=== PATIENT | male | born 1965 | race Caucasian/White ===

== ENCOUNTER 2020-09-23 14:26 | Emergency (ER) | payer BC, SELFPAY ==
[2020-09-23 14:30] VITALS: BP 165/105; PULSE 94; RESP 20; TEMP 36.8; O2SAT 98; BMI 26.8
--- NOTE | 2020-09-23 14:38 | RAD_ITS ---
STUDY: X-RAY - RIGHT HAND, ATTENTION SECOND FINGER REASON FOR EXAM: Male, 54 years old. Crush in wood splitter TECHNIQUE: 3 view(s) of the finger were obtained. COMPARISON: None. FINDINGS: Normal metacarpal head. Normal metacarpophalangeal joint. Normal proximal phalanx. Normal middle phalanx. Normal distal phalanx. Normal proximal interphalangeal joint. Normal distal interphalangeal joint. There is soft tissue injury involving the distal finger extending to the cortical surface of the distal phalanx. RAD/Finger(s) Min 2 Views IMPRESSION: 1. No fracture or malalignment. 2. Soft tissue injury of the distal second finger extending to the distal phalanx cortical surface. Electronically Signed: Sebas Blanco MD (Brooks) at 15:07 EDT , Service support ,
--- NOTE | 2020-09-23 14:39 | EKG12_ITS ---
Test Reason : TACHY Blood Pressure : / mmHG Vent. Rate : 093 BPM Atrial Rate : 093 BPM P-R Int : 150 ms QRS Dur : 090 ms QT Int : 364 ms P-R-T Axes : 064 018 040 degrees QTc Int : 452 ms Normal sinus rhythm with sinus arrhythmia Normal ECG Confirmed by BASIM GEIGER, SHABANA ([id number]), food expeditor MARISOL RODRIGUEZ ([id number]) on 09/27/2020 7:46:15 AM Referred By: JESSICA/CHIQUI Confirmed By:SHABANA STALLWORTH MD
--- NOTE | 2020-09-23 14:51 | ED.DCSUM_ITS ---
History of Present Illness Chief Complaint: Upper Extremity Injury Informant: Patient Narrative: Patient is a 54-year-old male with history of neurofibromatosis who presents to the emergency department for right index finger injury. He states he got his finger caught in a wood splitter. Mild bleeding present onto arrival in the emergency department. He denies any other injury. There is a large chunk of skin from the pad of the distal finger missing. He is not on any blood thinning medications. He denies any loss of sensation on the rest of the finger. He is able to move the finger well. He is right-handed at baseline. Patient not sure when last tetanus shot was, it has been greater than 5 years. Past Medical History - Allergies and Home Meds Allergies/Adverse Reactions: Allergies No Known Allergies Allergy (Verified 09/23/20 14:35) Primary Care Physician: [facility] [Outside] - 1 Day [facility] Doctor,Out of [NON-STAFF] - Prior records reviewed: Yes Past Medical History: None Surgical History: noncontributory Smoking Status: Unknown if ever smoked Review of Systems All systems negative except as indicated General: Denies: Chills, Fever, Sweats Eyes: Denies: Visual changes - bilaterally, Diplopia ENT: Denies: Rhinorrhea, Sore throat Cardiovascular: Denies: Chest pain, Palpitations Respiratory: Denies: Dyspnea, Cough, Dyspnea on exertion Gastrointestinal: Denies: Abdominal pain, Nausea, Vomiting Musculoskeletal: Reports: Extremity Pain. Denies: Neck pain, Back pain Skin: Reports: Wounds. Denies: Rash Neurological: Denies: Headache, Weakness, Numbness Hematologic: Denies: Easy bruising, Easy bleeding Physical Exam Vital Signs/Narrative: Vital Signs Temp Pulse Resp BP Pulse Ox 09/23/20 14:30 98.2 F 94 20 H 165/105 H 98 Inital Vital Signs reviewed: Yes General: Well nourished, Well developed, No Acute Distress Head: Normocephalic, Atraumatic Eyes: Perrl, EOMI ENT: Moist mucous membranes, No rhinorrhea Neck: Supple Cardiovascular: Regular rate, Regular rhythm Respiratory: No distress, CTA bilaterally Abdomen: Nontender, Nondistended Back: Nontender, Normal Inspection Extremities: Nontender - The pad of the right index finger has large avulsion with bone exposed. Fingernail is missing with half of the nailbed gone. Exposed muscle/fat pad. Length of avulsion is approximately 3.5 cm, sensation intact on dorsal aspect. Good range of motion of the finger with extension and flexion., No edema, - - The pad of the right index finger has large avulsion with bone exposed. Fingernail is missing with half of the nailbed gone. Exposed muscle/fat pad. Length of avulsion stent approximately 3.5 cm sensation intact on dorsal aspect. Good range of motion of the finger with extension and flexion. Skin: Normal color, No rash Neurological: Alert, Oriented x3, Normal Strength, Normal Sensation Psychological: Normal affect, Normal Mood Diagnostic/Tx/Re-eval Chest X-Ray - ED: - - 2 view finger x-ray interpreted by myself. No bony fracture appreciated. There is soft tissue injury of the distal phalanx. - Medical Decision Making Patient presents to the emergency department for finger injury. He got his index finger stuck in a wood splitter. X-rays are being obtained. This will require repair with sutures. The wound is soaked in warm water with chlorhexidine. Digital block was performed with lidocaine. Apparently out in triage patient's rhythm strip was double reading and was thought to be 180 bpm so an EKG was obtained prior to going to room. It was actually 93 bpm. EKG just showed a normal sinus rhythm. No ST elevations or depressions. No T wave abnormalities. Wound was repaired as best as possible. The bone was trimmed down in order to bring the soft tissue over it. I was unable to completely close the skin as with the large avulsion there was not enough to bring it together. Patient's finger was dressed. He was given first dose of antibiotic here in the emergency department as well as tetanus update. He will be sent home on antibiotic. He understands he is to call the [facility] Friday morning to get an appointment as soon as possible. This will likely need revision. Return precautions are reviewed with him including any increased bleeding, signs of infection. He understands and is agreeable this plan. Discharged home in stable condition. All questions answered. Procedures Procedure(s): Finger avulsion repair: Consent obtained. Patient had finger soaking in warm chlorhexidine water. It was rinsed out with normal saline. 6cc 1% lidocaine without epi used for digital block. The distal phalanx was rongeured in order to be covered up with the soft tissue surrounding the site. Patient did have some pulsatile bleeding and vessel was tied off at distal site. Four absorbable 5-0Vicryl sutures were placed to bring the fat pad and finger muscle closer together. 4 overlying 4-0 ethilon nonabsorbale were then placed to bring the skin closer together. Unable to bring this closely approximated. There was still a venous ooze and Surgicel was applied. A pressure dressing was then applied. Patient observed afterward. No complications. He tolerated this procedure well. ED Disposition - Plan for ED Patient: Disposition: Home or Assisted Living Diagnosis: Finger avulsion Instructions: ED Skin Avulsion Prescriptions: Cephalexin [Keflex] 500 mg PO Q6 7 Days #28 capsule Prescription Printed Referrals: [facility] Doctor,Out of [NON-STAFF] - [facility] [Outside] - 1 Day Additional Instructions: Please schedule appointment with the [facility] hand surgeon as soon as possible. Wound needs to be monitored. Sutures will also need to be removed in 7 to 10 days. Please stay on antibiotic until evaluated by the surgeon.
[2020-09-23] MEDS: Lidocaine 1% (20 ml mdv) 20 ML Vial 5 ML INFILT (15:14)
[2020-09-23] MEDS: Cephalexin 250 MG Capsule 500 MG PO (16:52)
[2020-09-23] MEDS: Diphth,Pertuss(Acell),Tet Vac 0.5 ML Vial IM (16:53)
== END 2020-09-23 17:03 | disposition home or self-care (01) ==
PROVIDERS: Emergency Provider Emergency Medicine; PCP Nurse Practitioner Family
DX: S61.300A Unspecified open wound of right index finger with damage to nail, initial encounter (principal); W31.89XA Contact with other specified machinery, initial encounter; Y93.89 Activity, other specified; Y92.89 Other specified places as the place of occurrence of the external cause; Y99.8 Other external cause status; Q85.00 Neurofibromatosis, unspecified; Z23 Encounter for immunization
CPT/HCPCS: 11730; 73140; 90715; 93005; 99281; 99283

== ENCOUNTER 2021-07-30 07:33 | Outpatient (CLI) | payer BC, SELFPAY ==
--- NOTE | 2021-07-30 07:40 | CT_ITS ---
STUDY: CT RIGHT SHOULDER REASON FOR EXAM: Male, 55 years old. Preoperative evaluation. RADIATION DOSAGE (If Supplied By Facility): CTDIvol = ( 28.23 ) mGy, DLP = ( 590.11 ) mGycm TECHNIQUE: The patient was scanned in a multi detector CT scanner. High resolution transaxial imaging was performed without the administration of intravenous contrast material. Sagittal and coronal images were reconstructed. Individualized dose optimization techniques were used for this CT. COMPARISON: None. FINDINGS: The patient is status post right shoulder replacement. There is good alignment. Normal coracoid process. Normal visualized lateral clavicle. Normal acromioclavicular articulation. There is a Type II morphology (curved), with a neutral orientation. Normal visualized muscles and soft tissue structures. CT/Extremity Upper without Contra IMPRESSION: The patient is status post right shoulder replacement. There is good alignment. Electronically Signed: David Cheek MD at 9:54 EST ,
== END 2021-07-30 23:59 | disposition home or self-care (01) ==
PROVIDERS: PCP Nurse Practitioner Family; Referring Provider Specialist; Visit Provider Specialist
DX: Z96.611 Presence of right artificial shoulder joint (principal)
CPT/HCPCS: 73200; C9803

== ENCOUNTER 2021-09-19 13:00 | Inpatient (IN) | payer BC, SELFPAY ==
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
--- NOTE | 2021-09-06 08:01 | EKG12_ITS ---
Test Reason : PREOP Blood Pressure : / mmHG Vent. Rate : 060 BPM Atrial Rate : 060 BPM P-R Int : 150 ms QRS Dur : 084 ms QT Int : 418 ms P-R-T Axes : 053 012 031 degrees QTc Int : 418 ms Normal sinus rhythm Normal ECG Confirmed by YENNY GEIGER, KAYR ([id number]), editor magazine BESS JOYNER ([id number]) on 09/06/2021 1:34:21 PM Referred By: JACKY PABLO Confirmed By:BENJI RAMON MD
[2021-09-06 08:06] LABS: Absolute Lymphocyte Count 1.71 X10^3/uL (0.83-4.51); Absolute Neutrophil Count 5.1 X10^3/uL (2.0-7.7); Basophil# 0.05 X10^3/uL; Basophil% 0.6 % (0-1); Eosinophils% 4.9 % (0-5); Hematocrit 46.4 % (40-54); Hemoglobin 16.4 g/dL (13.0-16.5); Lymphocyte # 1.71 X10^3/ul (0.83-4.51); Lymphocyte % 20.8 % (19-41); Mean Corp Hgb Conc 35.3 g/dL (32-36); Mean Corpuscular Hgb 31.4 pg (27.0-32.0); Mean Corpuscular Volume 88.7 fL (80-94); Mean Platelet Vol. 9.7 fl (6.2-12.0); Monocyte# 0.93 X10^3/uL; Monocyte% 11.3 % (0-10); NRBC Flagged by Analyzer 0 % (0-5); Neutrophil # 5.08 X10^3/uL (2.7-7.7); Neutrophil % 61.9 % (47-70); Platelet Count 254 K/mm3 (150-450); RBC Distribution Width CV 12.7 % (11.6-14.6); RBC Distribution Width SD 41.5 fl (35.1-43.9); Red Blood Count 5.23 M/mm3 (4.6-6.2); White Blood Count 8.2 K/mm3 (4.4-11.0)
[2021-09-06 08:36] LABS: Magnesium 2.2 mg/dL (1.6-2.6)
[2021-09-06 08:40] LABS: Albumin, Serum 3.7 g/dL (3.2-5.0); Anion Gap 3 (5-15); BUN 15 mg/dL (7-18); BUN/Creat Ratio 18.5 RATIO (10-20); Calcium,Total 9.2 mg/dL (8.5-10.1); Chloride 106 mmol/L (98-107); Creatinine, Serum 0.81 mg/dL (0.70-1.30); EST Glomerular Filtration Rate 104 mL/min (>60); Est Glom Filt Rate - Afr Amer 126 mL/min (>60); Glucose 108 mg/dL (74-106); Potassium 4.1 mmol/L (3.5-5.1); Sodium Level 138 mmol/L (136-145)
[2021-09-19] VITALS (10 sets, daily range): BP systolic 124–151; BP diastolic 76–98; PULSE 68–93; RESP 16–18; TEMP 36.4–37.1; O2SAT 93–100; BMI 28.2
[2021-09-19] MEDS: Gabapentin 600 MG Tablet PO (08:20)
[2021-09-19] MEDS: Celecoxib 200 MG Capsule 400 MG PO (08:20)
[2021-09-19] MEDS: Acetaminophen 500 MG Tablet 1000 MG PO ×3 (08:21→21:59)
[2021-09-19] MEDS: dexAMETHasone 10 MG/ML Vial IV (08:21)
[2021-09-19] MEDS: Lactated Ringers 1,000 ML 999 ML IV ×2 (08:21→14:25)
[2021-09-19] MEDS: Lactated Ringers 1,000 ML 75 ML IV ×2 (08:38→16:11)
[2021-09-19 09:50] LABS: Bedside Glucose 112 mg/dL (74-106)
[2021-09-19] MEDS: Cefazolin 2 GM in 0.9% Normal Saline 100 ML IV (10:21)
[2021-09-19] MEDS: TXA 1000mg in NS100 100ml (IVPB at Incision) 660 MG IV (10:31)
[2021-09-19] MEDS: TXA 1000mg in NS100 100ml (IVPB at Closure) 660 MG IV (12:53)
--- NOTE | 2021-09-19 13:01 | RAD_ITS ---
STUDY: X-RAY - RIGHT SHOULDER REASON FOR EXAM: Postoperative evaluation of right shoulder arthroplasty. TECHNIQUE: 2 view(s) of the shoulder. COMPARISON: CT right shoulder report 07/30/2021. FINDINGS: There is a reverse right shoulder arthroplasty without evidence of complication. There is postoperative gas in the soft tissues. Normal visualized pulmonary apex. RAD/Shoulder min 2 Views IMPRESSION: Uncomplicated right shoulder arthroplasty. Electronically Signed: Jae Womack MD at 14:47 EDT ,
--- NOTE | 2021-09-19 13:05 | OP.PCM_ITS ---
Report of Operation Date of Procedure: 09/19/21 Pre-Operative Diagnosis: Right shoulder Previous hemiarthroplasty with progress ion of osteoarthritis of the glenoid side. Post-Operative Diagnosis: Right shoulder Previous hemiarthroplasty with progression of osteoarthritis of the glenoid side. Surgery/Procedure Performed:: Right revision hemiarthroplasty to reverse total shoulder replacement Description of Surgical Findings:: Stable shoulder Surgeon: Emir Laguerre certified wellness program manager: Perfecto Trent Type of Anesthesia: General Special Medications: 2 g Ancef, 1 g TXA at incision, 1 g TXA closure, 10 mg Decadron. Vancomycin and incision. Patient was redosed with an additional gram of Ancef 2 hours after incision was made. Specimen's removed: Bony cuts Estimated Blood Loss (mL): 100 Fluids Replaced: 1200 ML CRYSTALLOID Description of Procedure: Components used 1. Biomet 28 mm baseplate with 2 screws 2. Biomet 36 mm +6 mm cobalt-chromium glenosphere with the offset 3. Tornier 36mm, 6mm humeral liner 4. Tornier reverse TSA humeral adapter tray 36 mm With a 3.5 mm offset 5. Tornier revision modular humeral stem 11 mm distal stem with 11 mm standard body. Brief history/Operative indications: 55 yo M with history of previous right shoulder hemiarthroplasty in 2011. Patient had progression of pain and superior migration of the humeral head as well as progression of glenoid osteoarthritis.. Patient failed conservative measures as mentioned in the H&P. After discussion of risk and benefits of reverse total shoulder replacement including but not limited to blood loss, DVTs, PEs, nerve vessel damage, infection, general risk of anesthesia including loss of life, instability and stiffness patient demonstrating understanding wish to proceed was able to sign informed consent. Medical clearance was obtained. In the office and in the preoperative area we discussed our plan was to attempt to use the same fisher eel as the stem and convert to have a reverse shoulder replacement while saving the humeral stem. However I discussed the patient that there is a modular stem made by different company we would use this if we had to revise the stem. Based on this decision being made after bony glenoid work we discussed the potential for off label use of 2 different implant companies. Patient understands we will use a matching diameter. Patient is agreeable to the treatment plan. Procedure: On the date of the procedure, patient's right upper extremity was marked in the preoperative area. Patient was taken back to the operating room where they were placed on the table in the supine position. Anesthesia assumed control of the C-spine and airway, then administered anesthetic. All bony prominences were identified well-padded, the head was secured and the patient was placed in the beachchair position at about 35? inclination. Anesthesia remained in control of the C-spine airway throughout the remainder of the procedure. Patient was then appropriately fastened to the table and the right upper extremity was prepped in a sterile fashion. The surgeons then scrubbed. Upon reentering the room, the right upper extremity was draped in a sterile fashion and the incision was marked out. Timeout was called, everyone agreed upon the side, the site, the procedure to be performed, patient identity and antibiotics given. Incision was taken down through skin and subcutaneous tissue, fat down to fascia. We carefully dissected down. Patient had had previous multiple surgeries and we used anatomic markers including the coracoid process in order to identify the interval. We carefully dissected between the interval and identify the implant. Once we identified the proximal humerus we carefully dissected down the humeral shaft and over the medial humerus protecting vital structures. Once this was done we were able to use a instrument to disrupt the Pierson taper and remove the humeral head. 2 separate cultures were taken from this area. Once his humeral head was removed the humerus was retracted out of the way and the glenoid was exposed. After exposing the glenoid, the labrum and the remaining proximal biceps were debrided. At this time we are able to view the entire outer edge of the glenoid. A central pin was placed we sequentially reamed over this central pin to 28mm. For the Biomet 28 mm baseplate. We then carefully removed excess bone around the glenoid. Once this was completed the central screw was measured and found to be. The glenoid baseplate was screwed into place. Wound was closely irrigated out with normal saline we then drilled sequentially for 2 screws. Screws were placed superiorly and inferiorly and tightened down the screws. Once the screws were appropriately tightened into place the glenoid baseplate was compressed against the exposed subchondral bone. At this time we placed a trial glenosphere. Once the trial glenosphere was placed we turned our attention back to the humerus where we trialed to attempt to see if we could a ppropriately tension the soft tissues. Unfortunately however using both a 36 and a 40 mm glenosphere we were unable to adequately tension the tissues as they were increasingly tight. There was too much anteriorization of the current humeral position. At this point trials were removed on we directed our attention towards the humerus. The humerus was again externally rotated exposing the proximal portion of the humerus. Flexible osteotomes and a bur were used to carefully debride bone around the proximal humerus. A extraction mechanism was placed on the proximal humerus stem and it was removed. There was a anterior bony defect. Central canal finder was then used to open up the canal. We sounded the canal to an 11 mm stem with a standard body. The trial stem was assembled on the back table and inserted into place at 30 degrees retroversion. We trialed the 6mm liner, with the 36 mm +3.5 mm humeral baseplate. We obtained an adequate reduction at this time with a nice stable shoulder. In attempting to take the shoulder through range of motion we did note that there was a fracture in the anterior bone which was then. However the main greater tuberosity and the soft tissue at tachments remained stable. Based on this we did not elect to proceed with any further intervention as there was no way to really fix this for bone stock. Good internal rotation to the gluteus, forward elevation to 120?, external rotation to 20?. Final components were then assembled on the back table, trials were removed and the wound was copiously irrigated with normal saline after dislocating the shoulder. Once the final components were assembled they were impacted into place. Shoulder was then reduced and found to be stable with good range of motion. Subscapularis tendon not repairable. The wound was with chlorhexidine solution then copiously irrigated out with a 1 L normal saline lavage. The deltopectoral fascia was then closed using #1 Vicryl skin was closed using 2-0 Vicryl interrupted sutures and final skin closure was done with 3-0 Monocryl. Steri-Strips are placed for final skin closure. Sterile dressing was placed patient was then placed in a sling and awakened by anesthesia. Patient was then transferred to the PACU for recovery. Postoperative plan: Patient will be admitted to the hospital overnight. They will get physical therapy starting in 2 weeks with normal postoperative regimen. Patient will be placed on 81 mg twice daily aspirin for DVT prophylaxis. The first postoperative appointment will be in 2 weeks for wound check and initiation of phase 1 physical therapy. Patient was placed on doxycycline 100 mg twice daily for 2 weeks as we follow cultures. During the course of the procedure the physician assistant prosecuting attorney played a vital role. His intimate knowledge of my steps in the procedure aided in safe and expedient completion of the procedure. The PA played a vital rolls in positioning particularly in obtaining the appropriate beach chair position and securing the patient's body and head to the table. The PA was also vital in the retraction of soft tissues during the exposure and especially the glenoid work as this is a vital part of the procedure to prevent neurovascular damage. the PA was also vital and protecting soft tissues during times of bony cuts and reaming. He also played a vital role in closure with my direct supervision. The PA was also important during reduction and dislocation of the joint and trials intraoperatively. Complications Nondisplaced fracture at the area of the anterior greater tuberosity. Admit VTE Documentation VTE Present on Admission: No VTE Mechan Device Prophylaxis: SCD's VTE Pharm Prophylaxis ordered?: Yes
[2021-09-19] MEDS: oxyCODONE 5 MG Tablet PO ×2 (16:11→20:21)
--- NOTE | 2021-09-19 16:55 | PN.HOSP_ITS ---
Documented by User: Karyn Roman NP, MARINE EQUIPMENT TEST ENGINEER-C 09/19/21 18:06 Subjective Subjective Patient seen and examined. Pain fairly controlled. Denies current symptoms or complaints. States he was just recently put on blood pressure medicine and he feels his pressure was elevated secondary to pain. Objective Data Objective Data Vital Signs: Vital Signs Temp Pulse Resp BP Pulse Ox 98.6 F 73 18 133/83 H 95 09/19/21 15:34 09/19/21 15:34 09/19/21 15:34 09/19/21 15:34 09/19/21 15:45 Oxygen Flow Rate (L/min) 4 Oxygen Delivery Method Nasal Cannula Weight: 213 lb 13.574 oz Body Mass Index (BMI) 28.2 Intake & Output: Intake and Output for Last 24 Hours 09/17/21 09/18/21 09/19/21 23:59 23:59 23:59 Intake Total 4366 / 4366 Output Total 450 / 450 Balance 3916 / 3916 Lab / Micro Data Result Diagrams: 09/06/21 07:53 09/06/21 07:53 Labs: Laboratory Results - last 24 hr 09/19/21 08:17: POC Glucose 112 H Micro: Microbiology 09/18/21 10:00 Nasal Secretion SARS-CoV-2 Antigen (Rapid) - Final 09/06/21 07:53 Interface Orders Nasal Screen MRSA/MSSA - Final Radiography Diagnostic Testing: Radiology Impression Shoulder X-Ray 09/19/21 13:01 IMPRESSION: Uncomplicated right shoulder arthroplasty. Electronically Signed: Jae Womack MD at 14:47 EDT , Physical Exam Const alert, oriented x3 and no apparent distress Orientation / Consciousness: awake, oriented to person, oriented to place and oriented to time HEENT normocephalic and moist oral mucous membranes Eyes PERRL, EOMs intact bilaterally and conjunctivae normal Neck no lymphadenopathy Resp normal respiratory effort and clear to auscultation bilaterally Cardio regular rate, regular rhythm and no murmurs Peripheral Pulses: pulses 2+ throughout GI normal to inspection, nondistended, normoactive bowel sounds, non-tender and non-distended Extremity normal to inspection Skin no rashes or lesions noted Skin Narrative: Diffuse dermatofibromatosis Lesions: no lesions Rashes: no rashes Trauma: no lacerations or abrasions Neuro CN's II-XII intact bilaterally, no focal motor deficits, no sensory deficits noted and deep tendon reflexes 2+ bilaterally Psych mental status grossly normal and affect normal Assessment & Plan Assessment/Plan (1) Osteoarthritis, shoulder: PLAN: 1. Right shoulder previous hemiarthroplasty with progression of ost eoarthritis of the glenoid side status post right revision hemiarthroplasty to reverse total shoulder replacement-management per orthopedic medicine. PT/OT. As needed pain regimen. 2. Hypertension-continue lisinopril. 3. Hyperlipidemia-not on statin. 4. Diffuse dermatofibromatosis DVT prophylaxis-aspirin 81 mg twice daily per Ortho This patient was seen by BALTAZAR Jones under the supervision of Dr. Farnsworth. Time spent examining patient, reviewing data and subsequent management of care: 10 Minutes Documented by User: Dr. Jeff Farnsworth MD 09/19/21 18:22 Objective Data Lab / Micro Data Result Diagrams: 09/06/21 07:53 09/06/21 07:53 Charges/Coding Addendum Addendum: Dr. Farnsworth: I personally reviewed the chart and examined the patient, and agree with the above findings. 55-year-old male with a history of neurofibromatosis and hypertension presents to the hospital for an elective revision of his right shoulder. Denies any change in his medical history recently and is only on lisinopril. We will check a creatinine in the morning to monitor stability. He states that he elected to stay overnight in the hospital secondary to living alone and he did not want to spend the night on his own immediately after surgery. Medicine was consulted for medical management. Nothing to do for his neurofibromatosis, will recommend continuing light) and monitoring creatinine in the morning. Clinical time spent in all aspects of patient care: 15 minutes Visit Charges Inpatient E&M: 17721 Subs Hosp L2
[2021-09-19] MEDS: Cefazolin 1 GM/50 ML BAG IV (17:37)
[2021-09-19] MEDS: Ensure Surgery 237 ML LIQUID PO (17:42)
[2021-09-19] MEDS: Senna/Docusate Sodium 1 Tablet 2 TABLET PO (21:59)
[2021-09-20 00:41] VITALS: BP 144/105; PULSE 91; RESP 18; TEMP 36.5; O2SAT 96
[2021-09-20] MEDS: Cefazolin 1 GM/50 ML BAG IV (02:50)
[2021-09-20 05:05] VITALS: BP 148/99; PULSE 77; RESP 18; TEMP 36.7; O2SAT 96
[2021-09-20] MEDS: Acetaminophen 500 MG Tablet 1000 MG PO (05:07)
[2021-09-20 06:06] LABS: Hematocrit 41.9 % (40-54); Hemoglobin 14.9 g/dL (13.0-16.5); Mean Corp Hgb Conc 35.6 g/dL (32-36); Mean Corpuscular Hgb 31.2 pg (27.0-32.0); Mean Corpuscular Volume 87.8 fL (80-94); Mean Platelet Vol. 10.9 fl (6.2-12.0); Platelet Count 229 K/mm3 (150-450); RBC Distribution Width CV 12.5 % (11.6-14.6); RBC Distribution Width SD 40.4 fl (35.1-43.9); Red Blood Count 4.77 M/mm3 (4.6-6.2); White Blood Count 17.1 K/mm3 (4.4-11.0)
[2021-09-20 06:29] LABS: Anion Gap 7 (5-15); BUN 13 mg/dL (7-18); BUN/Creat Ratio 16.7 RATIO (10-20); Calcium,Total 8.6 mg/dL (8.5-10.1); Chloride 106 mmol/L (98-107); Creatinine, Serum 0.78 mg/dL (0.70-1.30); EST Glomerular Filtration Rate 110 mL/min (>60); Est Glom Filt Rate - Afr Amer 133 mL/min (>60); Estimated Creatinine Clearance 120.93 ml/min; Glucose 113 mg/dL (74-106); Potassium 3.8 mmol/L (3.5-5.1); Sodium Level 138 mmol/L (136-145)
[2021-09-20 07:34] VITALS: BP 159/103; PULSE 86; RESP 16; TEMP 36.7; O2SAT 98
[2021-09-20] MEDS: Lisinopril 10 MG Tablet PO ×2 (07:43→11:29)
[2021-09-20] MEDS: Famotidine 20 MG Tablet PO (07:43)
[2021-09-20] MEDS: oxyCODONE 5 MG Tablet PO ×2 (07:44→11:28)
[2021-09-20] MEDS: Ensure Surgery 237 ML LIQUID PO ×2 (07:44→07:49)
[2021-09-20] MEDS: Senna/Docusate Sodium 1 Tablet 2 TABLET PO (07:44)
--- NOTE | 2021-09-20 10:37 | PN.ORTHO_ITS ---
Subjective Subjective The patient was sitting in bedside chair upon examination. Patient denies any chest pain, shortness of breath, dizziness, lightheadedness, nausea or vomiting, or calf pain. Pain is controlled on medications. No adverse overnight events. Patient has had some elevated blood pressure. He reports that he has been dealing with this with his primary care physician. He is on lisinopril. He reports the primary care physician wanted him to let her know if there is continued blood pressure concerns. She would increase his lisinopril dose from 10 mg to 20 mg. Patient denies any chest pain, shortness of breath, headaches, or visual changes. Objective Data Objective Data Vital Signs: Vital Signs Temp Pulse Resp BP Pulse Ox 98.0 F 86 16 159/103 H 98 09/20/21 07:34 09/20/21 07:34 09/20/21 07:34 09/20/21 07:34 09/20/21 07:34 Oxygen Flow Rate (L/min) 4 Oxygen Delivery Method Room Air Weight: 97 kg Body Mass Index (BMI) 28.2 Intake & Output: Intake and Output for Last 24 Hours 09/18/21 09/19/21 09/20/21 23:59 23:59 23:59 Intake Total 4681 / 5081 1305 / 1305 Output Total 650 / 650 Balance 4031 / 4431 1305 / 1305 Lab / Micro Data Result Diagrams: 09/20/21 05:20 09/20/21 05:20 Labs: Laboratory Results - last 24 hr 09/20/21 05:20: WBC 17.1 H, RBC 4.77, Hgb 14.9, Hct 41.9, MCV 87.8, MCH 31.2, MCHC 35.6, RDW Std Deviation 40.4, RDW Coeff of Chasidy 12.5, Plt Count 229, MPV 10.9 09/20/21 05:20: Sodium 138, Potassium 3.8, Chloride 106, Carbon Dioxide 25.0, Anion Gap 7, BUN 13, Creatinine 0.78, Estim Creat Clear Calc 120.93, Est GFR (MDRD) Af Amer 133, Est GFR (MDRD) Non-Af 110, BUN/Creatinine Ratio 16.7, Glucose 113 H, Calcium 8.6 Micro: Microbiology 09/18/21 10:00 Nasal Secretion SARS-CoV-2 Antigen (Rapid) - Final 09/06/21 07:53 Interface Orders Nasal Screen MRSA/MSSA - Final Radiography Diagnostic Testing: Radiology Impression Shoulder X-Ray 09/19/21 13:01 IMPRESSION: Uncomplicated right shoulder arthroplasty. Electronically Signed: Jae Womack MD at 14:47 EDT Reading Location ID and State: [facility] / [place] Tel , Service support , Physical Exam Narrative Patient's blood pressure has been elevated. We are rechecking blood pressures. The last blood pressure was taken and his medication involving lisinopril was just given at the time. Dressing is clean, dry, intact Ultra-sling fitting appropriately Sensation intact to axillary, radial, median, and ulnar distribution Motor intact to AIN, PIN, and ulnar nerve Const alert, oriented x3 and no apparent distress Assessment & Plan Assessment/Plan (1) Status post reverse total shoulder replacement: PLAN: 1. S/P right revision hemiarthroplasty to reverse total shoulder arthroplasty POD #1 2. Continue Pain Medications: Tylenol, meloxicam, oxycodone 3. DVT Prophylaxis: Aspirin 81 mg twice daily for 2 weeks postoperatively 4. PT/OT: Continue with UltraSling at all times except to come out for range of motion exercises of the elbow and pendulum exercise 3 times daily. No range of motion of the postoperative shoulder until outpatient physical therapy begins. Outpatient physical therapy will begin 2 weeks postoperatively after follow-up with [facility] with x-rays and incision check. 5. H & H: 14.4/41.9, asymptomatic. Postoperative anemia secondary to acute b lood loss from surgery without any intra operative complications. 6. Reactive leukocytosis: Currently 17.1, afebrile. Patient did receive Decadron intraoperatively 7. Continue postoperative medical management per medicine: Case was discussed with the hospitalist and at this time we will recheck blood pressure. Patient did inform me that his primary care physician is considering increasing his lisinopril from 10 mg to 20 mg. Hospitalist states that if the blood pressure remains elevated she will adjust medication. Plan for patient to follow-up with primary care physician for continued management of blood pressure. If stable plan will be for discharge home today. 8. Encouraged Incentive Spirometry 9. Disposition: Plan will be for possible discharge home today as long as the blood pressures are stable. Patient will follow-up with primary care physician for management of hypertension. Patient has outpatient physical therapy established to begin after 2-week follow-up visit with [facility]. He will continue with elbow range of motion and pend ulum exercises only. Prescriptions will be E scribed to [facility] pharmacy. Upon discharge she will contact her office with any concerns or questions.. I have reviewed the [place] Automated Rx Reporting System (OARRS) report for this patient for refill pattern and other prescriber involvement as part of the appropriate surveillance for the provision of acute and chronic controlled medications. The report was requested and reviewed on the date of this entry and was considered in the prescribing process.
--- NOTE | 2021-09-20 10:48 | PCM.DC ---
Discharge Instructions Diet Discharge Diet: No restrictions Activity Discharge Activity: May Not Drive (For 6 weeks postoperatively and while taking narcotic pain medications.) May shower in (days): 1 (Dressing must be intact to skin. Turn dressing away from water.) Ice area for (Minutes): 20 (Every 1-2 hours while awake[address] Please place barrier between skin and ice pack.) Weight Bearing Status: No weight bearing (Postoperative upper extremity) Additional Activity Instructions:: Continue with UltraSling at all times. Please come out of UltraSling 3 times daily working on elbow range of motion and pendulum exercises. No range of motion of postoperative shoulder. Will begin outpatient physical therapy after 2-week scheduled follow-up. Dressing / Incision Call your doctor if your incision/area has: Continuous Slow Oozing, Sudden Increased Bleeding, Increased Pain/ Swelling, Increased Redness and Foul Smelling Discharge Call your doctor if you observe: Fever of 101 or Higher, Shortness of breath, Chest pain and Uncontrolled pain Remove Dressing in: 4 days (Okay to remove dressing on September 24, 2021) Additional Dressing/Incision Instructions:: Follow [facility] Post-op Instructions. Once postoperative dressing has been removed only use gentle soap and water over the incision. Do not use any ointments, Neosporin, salves, alcohol pads over the incision for 6 weeks postoperatively. Do not submerge underwater for 6 weeks postoperatively. Do NOT use alcohol with narcotic pain medication. Do NOT make important decisions while taking narcotic medication. If you have problems with taking your medication (rash, itching, nausea, etc.) call the office at once. Follow Up Care Test Results: Test results from this visit will be discussed in further detail at your follow-up appointment, if applicable. Discharge Plan Admission Admit Date/Time: 09/19/21 13:00 Attending Provider: Jeanette Prado Primary Care Provider: Edwige Ferrara NP Consulting Providers: Jeff Farnsworth Instructions Additional Instructions / Restrictions: Take note of the change to your lisinopril. Measure your blood pressure daily; keep a log of your blood pressure readings. Discharge Orders/Prescriptions Prescriptions: New acetaminophen 500 mg Tablet 1,000 mg PO Q8 14 Days Qty: 84 RF: 0 aspirin 81 mg Tablet,Delayed Release (Dr/Ec) 81 mg PO BID.RT 14 Days Qty: 28 RF: 0 meloxicam 7.5 mg Tablet 7.5 mg PO BID 30 Days Qty: 60 RF: 0 oxycodone 5 mg Tablet 5 - 10 mg PO Q4H PRN PRN (Reason: Pain Score 4-10) 5 Days Qty: 60 RF: 0 sennosides-docusate sodium [Stool Softener-Stimulant Laxat] 8.6-50 mg Tablet 2 tab PO BID Qty: 20 RF: 0 lisinopril 20 mg tablet 20 mg PO DAILY 30 Days Qty: 30 RF: 0 Discontinued lisinopril 10 mg tablet 10 mg PO DAILY RF: 0 Other Ambulatory Orders: 12 Lead EKG (Routine) Timeframe: [id number] Location: None Selected Ordered By: Dr. Emir Laguerre Referrals / Follow Up: Physical,Therapy [Other] - 10/04/21 2:30 pm Edwige Ferrara NP, [employer] [Primary Care Provider] - Perfecto Trent PA-C [PHYSICIAN SENIOR ELECTRONICS DESIGN ENGINEER] - 10/04/21 1:45 pm Disposition Disposition (needs filled in before D/C Order can be placed): Home, Self Care
[2021-09-20 10:49] VITALS: BP 153/98
--- NOTE | 2021-09-20 11:28 | PN.HOSP_ITS ---
Subjective Subjective Follow-up on right shoulder arthroplasty: Patient was seen and examined. Denied any new complaint. His pain is co ntrolled. Blood pressure slightly uncontrolled. His PCP has been working on increasing the lisinopril in the outpatient. Objective Data Objective Data Vital Signs: Vital Signs Temp Pulse Resp BP Pulse Ox 98.0 F 86 16 153/98 H 98 09/20/21 07:34 09/20/21 07:34 09/20/21 07:34 09/20/21 10:49 09/20/21 07:34 Oxygen Flow Rate (L/min) 4 Oxygen Delivery Method Room Air Weight: 97 kg Body Mass Index (BMI) 28.2 Intake & Output: Intake and Output for Last 24 Hours 09/18/21 09/19/21 09/20/21 23:59 23:59 23:59 Intake Total 4681 / 5081 1305 / 1305 Output Total 650 / 650 Balance 4031 / 4431 1305 / 1305 Lab / Micro Data Result Diagrams: 09/20/21 05:20 09/20/21 05:20 Labs: Laboratory Results - last 24 hr 09/20/21 05:20: WBC 17.1 H, RBC 4.77, Hgb 14.9, Hct 41.9, MCV 87.8, MCH 31.2, MCHC 35.6, RDW Std Deviation 40.4, RDW Coeff of Chasidy 12.5, Plt Count 229, MPV 10.9 09/20/21 05:20: Sodium 138, Potassium 3.8, Chloride 106, Carbon Dioxide 25.0, Anion Gap 7, BUN 13, Creatinine 0.78, Estim Creat Clear Calc 120.93, Est GFR (MDRD) Af Amer 133, Est GFR (MDRD) Non-Af 110, BUN/Creatinine Ratio 16.7, Glucose 113 H, Calcium 8.6 Micro: Microbiology 09/18/21 10:00 Nasal Secretion SARS-CoV-2 Antigen (Rapid) - Final 09/06/21 07:53 Interface Orders Nasal Screen MRSA/MSSA - Final Radiography Diagnostic Testing: Radiology Impression Shoulder X-Ray 09/19/21 13:01 IMPRESSION: Uncomplicated right shoulder arthroplasty. Electronically Signed: Jae Womack MD at 14:47 EDT , Physical Exam Narrative Physical exam: General: Alert, Oriented x3, Cooperative, No apparent distress, Well developed HEENT: Atraumatic Oral: Moist Mucosa Neck: Supple Lungs: Clear to auscultation Cardiovascular: HS I+II, regular, no murmurs Abdomen: Bowel Sounds Present, Soft, Non Tender Extremities: No edema, right shoulder in the sling Skin: Generalized neurofibromatosis Neurological: Grossly intact Psych/Mental Status: Appropriate Assessment & Plan Assessment/Plan (1) Osteoarthritis, shoulder: PLAN: 1. POD #1, status post right shoulder revision hemiarthroplasty, pain is fairly controlled Patient with history of previous hemiarthroplasty with progression of osteoarthritis of the glenoid side PT/OT to evaluate and treat 2. Hypertension, blood pressure fairly uncontrolled, on lisinopril 10 mg daily Increase lisinopril to 20 mg daily 3. Hyperlipidemia-not on statin. 4. Diffuse dermatofibromatosis 5. DVT prophylaxis-aspirin 81 mg twice daily per Ortho Charges/Coding Visit Charges Inpatient E&M: 27832 Subs Hosp L2
--- NOTE | 2021-09-20 11:45 | CASEMGMT ---
RN CM THREAD REELER CM to room to meet with patient for initial transition planning/care coordination assessment. RN THOM introduced self and role at [facility]. Pt voices understanding and consents to assessment at this time. Pt resting in bed in no distress at this time. Pt is A/O at this time and answers all questions appropriately. Care providers, pharmacy, and demographics verified/updated at this time. PCP: Edwige Ferrara MACHINIST [employer] Specialists: Dr Laguerre-ortho. Dr Filemon Shukla--neurologist [facility] Preferred Pharmacy: [facility] Retail Insurance: [employer] Prescription Benefit: Yes Living Will/HPOA: Has both LW and HPOA, who is Aydin and Figueroa. LNOK: sister Living Arrangements: Lives alone in 2-story home. FFSU. Independent. Friends plan to stop by and can assist as needed. Pt states good supply of food and he has arrangements made for anything he may need @ home while he is recovering. Transportation: Pt drives. Pt states may have difficulty getting to all of his therapy appts. He plans to discuss how long he will be NWB to left shoulder w/Dr Laguerre and options of therapy at either [facility] or [facility], and utilizing [facility] Van transportation to [facility], if needed. Sister will take pt home @ d/c DME: States has the following DME: shower chair, Ultra sling for shoulder Pt states no need for further DME at this time. HHC/SNF: No hx of either. No needs identified. Pt plans to do OP therapy in 2 weeks. Currently he plans to go to [facility]. He may switch to [facility], as documented above. He will discuss this w//Dr Laguerre Pt wishes to return home and states has no concerns with going home at time of discharge. CM to follow for any discharge planning/needs. Pt voices no concerns/needs at this time. Advised pt to ask for CM if any questions/concerns/needs arise. Voices understanding. PLAN: Home w/OP therapy Robert CHAVES RN, CM
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
[2021-09-20 12:54] VITALS: BP 146/99; PULSE 80
== END 2021-09-20 12:46 | disposition home or self-care (01) | DRG 483 ==
LOC: SDC 14:39 → MS3 14:39
PROVIDERS: Anesthesiology; Admitting Provider Specialist; PCP Nurse Practitioner Family; Referring Provider Specialist; Visit Provider Internal Medicine
PROC: 0RRJ00Z Replacement of Right Shoulder Joint with Reverse Ball and Socket Synthetic Substitute, Open Approach (ICD-10-PCS; principal; 2021-09-19 09:45)
DX: M19.011 Primary osteoarthritis, right shoulder (principal); D62 Acute posthemorrhagic anemia; Q85.00 Neurofibromatosis, unspecified; E78.5 Hyperlipidemia, unspecified; I10 Essential (primary) hypertension; F12.90 Cannabis use, unspecified, uncomplicated; F32.A Depression, unspecified; Z62.819 Personal history of unspecified abuse in childhood; Z87.891 Personal history of nicotine dependence
CPT/HCPCS: 36415; 73030; 80048; 82040; 82962; 83735; 85025; 85027; 87015; 87070; 87075; 87081; 87102; 87116; 87176; 87205; 87206; 87426; 93005; 97166; 99251; C1776; J7040; J7120; G0463

== ENCOUNTER 2022-08-20 09:01 | Day surgery (SDC) | payer BC, SELFPAY ==
[2022-08-20] MEDS: Lactated Ringers 1,000 ML 15 ML IV (09:15)
[2022-08-20 09:37] VITALS: BP 126/80; PULSE 70; RESP 16; TEMP 37.3; O2SAT 98; BMI 28.2
--- NOTE | 2022-08-20 10:22 | HP.PCM_ITS ---
History and Physical Date of Admission: 08/20/22 Intake Vital Signs ? 09/19/2214:34 07/23/2314:36 Height 6 ft 1 in 6 ft 1 in Weight: ? 215 lb BMI ? 28.3 BP ? 161/92 H Blood Pressure Location ? Rt brachial Position ? Sitting Intake Visit Reasons:?POSITIVE COLOGUARD Chief Complaint: positive cologuard Regulated Program Manager Required: No Is patient in pain?: No Allergies No Known Allergies Allergy (Verified 07/23/22 15:52) Medications acetaminophen 500 mg tablet 1,000 mg PO Q8 14 days #84 tabs 09/20/21 [Rx Confirmed 07/23/22] cetirizine 10 mg capsule (Zyrtec) 10 mg PO DAILY PRN 07/23/22 [History Confirmed 07/23/22] lisinopril 10 mg tablet 10 mg PO 07/23/22 [History Confirmed 07/23/22] dfqabhsd-irpucddb-dlhmt acid 400 mcg-vit K 20 mcg-lycop 300 mcg tablet (One-A-Day Men's Multivitamin) tab PO 07/23/22 [History Confirmed 07/23/22] omega 9-uey-zgc-fish oil 1,200 mg (144 mg-216 mg) capsule (Fish Oil) cap PO 07/23/22 [History Confirmed 07/23/22] phytosterol 300 mg-pantethine 100 mg capsule (CholestOff Complete) cap PO 07/23/22 [History Confirmed 07/23/22] red yeast rice 600 mg capsule 600 mg PO DAILY 07/23/22 [History Confirmed 07/23/22] vitamin C 500 mg-multivitamin with minerals chewable tablet (Emergen-C) 1 tab PO BID 07/23/22 [History Confirmed 07/23/22] PFSH Medical History? Frequent headaches Hypertension Marijuana use Neurofibromatosis Surgical History? Hx of shoulder surgery Family History? Mother Cancer ?? ? ovarian Social History? Smoking Status:? Never smoker alcohol intake:? current HPI HPI HPI: Patient is a 56-year-old male here for positive Cologuard.? Patient reports his last colonoscopy was over 10 years ago.? He says at that time a few polyps were removed but turned out to be neurofibroma's.? Patient does have neurofibromatosis.? He denies abdominal pain or blood in his stool. ROS General General: No weight change, appetite, fatigue, colon cancer, breast cancer or weakness HEENT HEENT: No difficulty swallowing, eye injury, eye surgery, swollen glands or hoarseness Endo Endocrine: No thyroid disease, diabetes mellitus, thyroid cancer, Hair loss, heat intolerance or cold intolerance Skin Skin: No rash or changing moles Breast Breast: No left breast lump, right breast lump, nipple discharge, breast pain, abnormal mammogram, abnormal US or breast enlargement Musc Musculoskeletal: Yes arthritis; No back problems, rheumatoid arthritis, gout or joint pain Cardio Cardiovascular: Yes high blood pressure; No murmur, pacemaker, heart disease, atrial fibrillation, heart attack, heart stent, palpitations, shortness of breat with exertion or chest pain Psych Psychiatric: Yes depression and anxiety; No hearing voices Resp Respiratory: No shortness of breath, No sleep apnea, No cough, No COPD, No asthma, No emphysema and No wheezing Gastro Gastrointestinal: No abdominal pain, No nausea or vomiting, No diarrhea, No constipation, No blood in stool, No acid reflux, No hemorrhoids, No ulcers, No gallbladder problem and No black,tarry stools Mazin Hematologic: No blood thinners, No blood disorders, No bleeding, No anemia and No blood clots Neuro Neurologic: No system reviewed and no additional complaints, except as documented, No as per HPI, No abnormal gait, No abnormal hearing, No abnormal movements, No abnormal speech, No behavioral changes, No burning sensations, No confusion, No convulsions, No disequilibrium, No dizziness, No localized weakness, No frequent falls, No headache(s), No lack of coordination, No loss of vision, No memory loss, Yes numbness, No other visual disturbances, No radicular pain, No restless legs, No sensory deficit, No syncope, Yes tingling, No tremor(s), No weakness and No other Exam Const General: cooperative Orientation: alert and oriented x3 HENMT Head: normal to inspection Neck Neck: normal visual inspection and full ROM Chest Chest palpation & inspection: normal inspection of the chest Resp Effort & Inspection: normal respiratory effort Auscultation: clear to auscultation bilaterally Cardio Rate: regular rate Rhythm: regular rhythm GI Inspection: non-distended Palpation: soft and nontender Skin Other: Patient has neurofibromatosis Neuro General: patient alert and patient oriented x3 Extrem General: full ROM Psych Appearance: grossly normal Mental Status: mental status grossly normal Assessment and Plan Assessment and Plan (1) Positive colorectal cancer screening using Cologuard test: ?Status:?Acute ?Plan: I explained endoscopy in detail to the patient.? I explained the risks including but not limited to stroke or heart attack with anesthesia, perforation of the GI tract, bleeding, infection.? I explained that any of these could necessitate further emergency surgery.? The patient understands and all questions were answered sufficiently.? The patient wishes to proceed with procedure. Martin Wlal MD Pager: [facility] [address] [place] [address] [address] [place] [address] Office: I have examined the patient and the H&P has been reviewed. There are no clinical changes since date of exam.
--- NOTE | 2022-08-20 10:30 | COLBX_PTH ---
PATIENT: ALDEN BRIGGS LOC: EN U#:[id number] AGE/SX: 56/M ROOM: RE08/20/[address]: Dr. Martin Wall MD : 1965 BED: DIS: 08/20/2022 SPEC #: [id number] RECD: 08/20/22 15:57 STATUS: NATY FLOYD #: [id number] EMANUEL: 08/20/22 10:[address]: Martin Wall DEPT: SURGICAL PATHOLOGY RECD BY: Ginger Hunt ENTERED: 08/21/22 12:18 SP TYPE: COLON BX OTHR DR: Edwige Ferrara, FIGURINE MAKER-C Tissues: Rectum, NOS Procedures: Surgery Specimen Level IV HEADER OPERATION: Colonoscopy (MAC), polypectomy PRE-OP DIAGNOSIS: Positive Cologuard test TISSUE SUBMITTED: Polyp rectum MICROSCOPIC DIAGNOSIS Rectal polyp, biopsy: Serrated adenoma. AM:finesse 08/22/2022 MICROSCOPIC DESCRIPTION Slides are reviewed. GROSS DESCRIPTION Received in fixative is one container labeled with the patient's name and designated polyp rectum. The specimen consists of a dinh-pink polyp measuring 0.7 x 0.6 x 0.3 cm. The specimen is totally submitted in one cassette. / SJ:finesse 08/21/2022 TC:5 CPT: 94334
--- NOTE | 2022-08-20 10:53 | OP.COLON_ITS ---
Patient Name: Hugo Alfaro Procedure Date: 08/20/2022 10:25 AM Date of : 1965 Age: 56 Procedure: Colonoscopy Indications: Positive Cologuard test Providers: Martin Wall MD Medicines: Monitored Anesthesia Care Patient Profile: This is a 56 year old male. Refer to note in patient chart for documentation of history and physical. Last Colonoscopy: none. The patient's first colonoscopy is today. Complications: No immediate complications. Procedure: Pre-Anesthesia Assessment: - Prior to the procedure, a History and Physical was performed, and patient medications and allergies were reviewed. The patient's tolerance of previous anesthesia was also reviewed. The risks and benefits of the procedure and the sedation options and risks were discussed with the patient. All questions were answered, and informed consent was obtained. Prior Anticoagulants: The patient has taken no previous anticoagulant or antiplatelet agents. After reviewing the risks and benefits, the patient was deemed in satisfactory condition to undergo the procedure. After I obtained informed consent, the scope was passed under direct vision. Throughout the procedure, the patient's blood pressure, pulse, and oxygen saturations were monitored continuously. The Colonoscope was introduced through the anus and advanced to the cecum, identified by appendiceal orifice and ileocecal valve. The colonoscopy was performed without difficulty. The patient tolerated the procedure well. The quality of the bowel preparation was good. Scope In: 10:37:56 AM Scope Withdrawal Time 0 hours 6 minutes 13 seconds Scope Out: 10:50:22 AM Total Procedure Duration Time 0 hours 12 minutes 26 seconds Findings: A medium polyp was found in the rectum. The polyp was removed with a hot snare. Resection and retrieval were complete. The exam was otherwise without abnormality on direct and retroflexion views. Impression: - One medium polyp in the rectum, removed with a hot snare. Resected and retrieved. - The examination was otherwise normal on direct and retroflexion views. Recommendation: - Discharge patient to home. - Resume previous diet. - Continue present medications. - Await pathology results. - Repeat colonoscopy in 5 years for surveillance based on pathology results. Procedure Code(s): --- Professional --- 40145, Colonoscopy, flexible; with removal of tumor(s), polyp(s), or other lesion(s) by snare technique Diagnosis Code(s): --- Professional --- K62.1, Rectal polyp R19.5, Other fecal abnormalities CPT copyright 2017 [employer]. All rights reserved. The codes documented in this report are preliminary and upon building maintenance engineer review may be revised to meet current compliance requirements. Martin Wall MD 08/20/2022 10:53:01 AM This report has been signed electronically. Number of Addenda: 0 Note Initiated On: 08/20/2022 10:25 AM
--- NOTE | 2022-08-20 10:53 | OP.CCLET_ITS ---
08/20/2022 Edwige Ferrara Re : Colonoscopy procedure for Hugo Alfaro Dear Josias This procedure was performed on Saturday, August 20, 2022. My impressions and recommendations are as follows: Impressions : - One medium polyp in the rectum, removed with a hot snare. Resected and retrieved. - The examination was otherwise normal on direct and retroflexion views. Recommendations : - Discharge patient to home. - Resume previous diet. - Continue present medications. - Await pathology results. - Repeat colonoscopy in 5 years for surveillance based on pathology results. My findings are described in the full procedure note, which is enclosed. If I can be of further assistance, please feel free to contact me at Doctor phone number(s): , Work: . Sincerely, Martin Wall MD 08/20/2022 10:53:01 AM This report has been signed electronically.
[2022-08-20 10:55] VITALS: BP 107/73; BP 126/80; PULSE 72; RESP 16; TEMP 36.8; O2SAT 94
[2022-08-20 11:00] VITALS: BP 110/68; BP 126/80; PULSE 66; RESP 16; O2SAT 95
[2022-08-20 11:05] VITALS: BP 115/69; BP 126/80; PULSE 57; RESP 16; O2SAT 96
[2022-08-20 11:10] VITALS: BP 115/73; BP 126/80; PULSE 57; RESP 16; TEMP 37; O2SAT 96
[2022-08-20 11:27] VITALS: BP 126/80
== END 2022-08-20 11:31 | disposition home or self-care (01) ==
LOC: EN 09:07 → AC 09:07
PROVIDERS: PCP Nurse Practitioner Family; Referring Provider Nurse Practitioner Family; Visit Provider Surgery
PROC: 0DJD8ZZ Inspection of Lower Intestinal Tract, Via Natural or Artificial Opening Endoscopic (ICD-10-PCS; CPT 45378; principal; 2022-08-20 10:25)
DX: D12.8 Benign neoplasm of rectum (principal); R19.5 Other fecal abnormalities; I10 Essential (primary) hypertension; Z79.899 Other long term (current) drug therapy
CPT/HCPCS: 45385; 88305; J7120; J2405